=== PATIENT | female | born 1960 | race Caucasian/White ===

== ENCOUNTER 2018-04-29 07:29 | Day surgery (SDC) | END 2018-04-29 14:30 | disposition home or self-care (01) ==

== ENCOUNTER 2019-04-07 08:01 | Day surgery (SDC) | payer OTHER ==
[2019-04-07] VITALS (21 sets, daily range): BP systolic 125–154; BP diastolic 65–85; PULSE 58–88; RESP 14–19; Ht 170.2 cm; Wt 101.9 kg
[~2019-04-07] VITALS: Ht 170.2 cm; Wt 101.9 kg
[~2019-04-07 08:01] MED LIST: CEFAZOLIN 2 GM/50 ML (PMX) 50 ML IVPB ONE; LISI-313 PO; SOD CHLORIDE 0.9% 1,000 ML IV SCH
[2019-04-07] MEDS ORDERED: PROPOFOL 200 MG INJ ONE (11:16)
[2019-04-07] MEDS ORDERED: LIDOCAINE 2% (SDV) 5 ML INJ ONE (11:16)
[2019-04-07] MEDS ORDERED: ROCURONIUM 50 MG INJ ONE (11:16)
[2019-04-07] MEDS ORDERED: SUCCINYLCHOLINE CHLORIDE 100 MG/5 ML SYG IV ONE (11:16)
[2019-04-07] MEDS ORDERED: EPHEDrine SULFATE 50 MG/5 ML SYG ONE (11:16)
[2019-04-07] MEDS ORDERED: ONDANSETRON 4 MG INJ ONE (11:17)
[2019-04-07] MEDS ORDERED: ROPIVACAINE 0.5 % 30 ML VIAL ONE (11:17)
[2019-04-07] MEDS ORDERED: MIDAZOLAM 1 MG/ML 2 ML INJ ONE (11:17)
[2019-04-07] MEDS ORDERED: FENTAnyl 50 MCG/ML VIAL IV PRN (11:30)
[2019-04-07] MEDS ORDERED: MEPERIDINE 25 MG INJ IV PRN (11:30)
[2019-04-07] MEDS ORDERED: ONDANSETRON 4 MG INJ IV PRN (11:30)
[2019-04-07] MEDS ORDERED: HYDROmorphONE 1 MG/5 ML IV SYRINGE IV PRN (11:30)
[2019-04-07] MEDS ORDERED: hydrALAzine 20 MG INJ IV PRN (11:30)
[2019-04-07] MEDS ORDERED: OXYCODONE/ACETAMINOPHEN (5/325) TAB PO PRN (11:30)
[2019-04-07] MEDS ORDERED: LABETALOL HCL 20MG INJ IV PRN (11:30)
[2019-04-07] MEDS ORDERED: DIPHENHYDRAMINE 50 MG INJ IV PRN (11:30)
[2019-04-07] MEDS ORDERED: EPHEDrine 25 MG/5 ML SYG IV PRN (11:30)
[2019-04-07] MEDS ORDERED: MIDAZOLAM 1 MG/ML 2 ML INJ IV PRN (11:30)
[2019-04-07] MEDS ORDERED: LABETALOL HCL 20MG INJ ONE (11:56)
[2019-04-07] MEDS ORDERED: KETOROLAC 30 MG INJ ONE (12:04)
[2019-04-07] MEDS ORDERED: SUGAMMADEX SODIUM 200 MG/2 ML VIAL IV ONE (12:05)
[2019-04-07] MEDS ORDERED: GLYCOPYRROLATE 0.4 MG INJ ONE (12:10)
[2019-04-07] MEDS ORDERED: HYDROCODONE/APAP (5/325) TAB PO ONE (12:30)
[2019-04-07] MEDS: HYDROmorphONE 1 MG/5 ML IV SYRINGE IV PRN ×3 (13:01→13:23)
== END 2019-04-07 16:16 | disposition home or self-care (01) ==
LOC: SDS 08:01
PROVIDERS: ATTEND Surgery
DX: K80.10 Calculus of gallbladder with chronic cholecystitis without obstruction (principal); I10 Essential (primary) hypertension; E66.9 Obesity, unspecified
CPT/HCPCS: 88304; J1170; J1885; J2250; J2405; J2795; J3010